=== PATIENT | female | born 1980 | race Caucasian/White ===

== ENCOUNTER 2017-08-05 20:06 | Emergency (ER) | payer MEDICAID, OTHER ==
[~2017-08-05] VITALS: Ht 154.9 cm; Wt 49.0 kg
[2017-08-05 20:17] VITALS: BP_SYST 118
--- NOTE | 2017-08-05 20:21 | NUR ---
Patient to ER bed 8 to gown for evaluation. Side rails up. Report given to DALLAS SUAREZ.
--- NOTE | 2017-08-05 20:25 | NUR ---
Patient AAO x4, sitting in bed, c/o LAC TO Left palm from a kitchen knife, patient reported that she was cutting fish for dinner and her hand slipped and she accidentally cut herself. Patient reports no pain. No active bleeding. Will continue to monitor.
--- NOTE | 2017-08-05 20:26 | NUR ---
CORINNE Khan at bedside examining patient.
[2017-08-05] MEDS ORDERED: DIPH-TET-PERTUS Vaccine 0.5 ML VIAL (ADACEL) IM ONE (20:30)
[2017-08-05] MEDS ORDERED: BACITRACIN 1 GM OINT TP ONE (20:30)
[2017-08-05 20:59] VITALS: BP_SYST 115
--- NOTE | 2017-08-05 20:59 | NUR ---
Patient given written and verbal discharge instructions and verbalizes understanding. ER MD discussed with patient the results and treatment provided. Patient in stable condition. ID arm band removed. No Rx given. Patient educated on pain management and to follow up with PMD. Pain Scale 0/10. Opportunity for questions provided and answered.
== END 2017-08-05 20:59 | disposition home or self-care (01) ==
LOC: SED 20:06
DX: S61.412A Laceration without foreign body of left hand, initial encounter (principal); W26.0XXA Contact with knife, initial encounter; Y93.89 Activity, other specified; Y92.89 Other specified places as the place of occurrence of the external cause; Y99.8 Other external cause status
CPT/HCPCS: 90715; 99284

== ENCOUNTER 2017-09-13 11:29 | Emergency (ER) | payer MEDICAID ==
[~2017-09-13] VITALS: Ht 154.9 cm; Wt 49.4 kg
[2017-09-13 11:49] VITALS: BP_SYST 137
[2017-09-13 12:35] VITALS: BP_SYST 137
== END 2017-09-13 12:35 | disposition home or self-care (01) ==
LOC: SED 11:29
DX: H57.8 Other specified disorders of eye and adnexa (principal)
CPT/HCPCS: 99284